=== PATIENT | female | born 1970 | race Caucasian/White ===

== ENCOUNTER 2018-07-29 03:11 | Observation (INO) ==
[2018-07-29] MEDS ORDERED: ALBUTEROL SULFATE/IPRATROPIUM 3 ML NEBU IH ONE ×2 (04:33→04:38)
[2018-07-29] MEDS ORDERED: NORMAL SALINE 1,000 ML IV ONE (04:55)
[2018-07-29 05:19] LABS: Hematocrit 32.7 % (37.0-47.0); Hemoglobin 10.9 gm/dL (12.5-16.0); Mean Cell Volume 95.9 fl (78-100); Mean Corpuscular Hgb Conc 33.3 g/dl (32-36); Mean Platelet Volume 10.4 fl (8-12.5); Neutrophil % 64.2 % (42-75.0); Platelet Count 142 K/mm3 (150-450); Red Blood Count 3.41 M/mm3 (4.2-5.4); Red Cell Distribution Width 14.7 % (11.5-14.0); White Blood Count 9.4 K/mm3 (4.0-10.5)
[2018-07-29 05:41] LABS: Albumin * 3.3 gm/dl (3.4-5.0); Anion Gap 9.1 mmol/L (6.8-13.8); BUN/Creatinine Ratio 11.6 (9.0-21.6); Bilirubin, Total 0.3 mg/dL (0.0-1.1); Ca. Corrected For Albumin 8.2 mg/dL (8.4-10.2); Potassium 3.1 mmol/L (3.4-4.6); Total Protein 6.3 gm/dL (6.2-8.2)
[2018-07-29] MEDS: LEVOFLOXACIN IN DEXTROSE 5 % 750 MG/150 ML BAG IV SCH (05:51)
[2018-07-29] MEDS: NICOTINE 21 MG PATC TD SCH (06:55)
--- NOTE | 2018-07-29 07:26 | ERNOTE ---
Dyspnea - Date Date of Service: 07/29/18 - General Presenting Symptoms: shortness of breath, difficulty of breathing Time Seen by Provider: 07/29/18 06:05 Source: patient, family Exam Limitations: no limitations - Immun/Allergies/Home Medications Immunizations: IMMUNIZATION HX Immunizations Up to Date Yes History of Influenza Vaccine Yes Hx Pneumococcal Vaccination Yes Allergies/Adverse Reactions: Allergies Penicillins Allergy (Verified 07/29/18 03:28) venom-honey bee [bee venom (honey bee)] Allergy (Verified 05/11/18 11:27) Home Medications: HOME MEDICATIONS Albuterol Sulfate [Albuterol Sulfate 2.5 MG/0.5ML] 1 vial IH Q4H 03/28/14 [Last Taken 03/28/14] Albuterol Sulfate [Proair Hfa] 2 puff IH QID PRN 03/28/14 [Last Taken 03/28/14] Budesonide/Formoterol Fumarate [Symbicort 160-4.5 Mcg Inhaler] 2 puff IH BID 03/28/14 [Last Taken 03/28/14] Insulin Regular, Human [Humulin R] 40 unit SQ BID 03/28/14 [Last Taken 03/28/14] metFORMIN HCL [Metformin HCl] 1,500 mg PO DAILY 05/11/18 [Last Taken Unknown] - History of Present Illness Narrative: Patient was treated as an outpatient for pneumonia with an antibiotic the name of which she can not remember. She takes it twice a day. She is having a hard time catching her breathe. It is difficulty for her to walk across the room without getting short of breathe. Date (Duration): 07/29/18 Time (Timing): 04:20 Severity: moderate Treatment CLINICAL TRIALS SPECIALIST: albuterol - Patient no longer has a nebulizer at home. She lost it when she moved to her daughter's house. Initiating event: Reports: upper resp illness, exposure to smoke Frequency of episodes: Reports: no prior episodes Modifying Factors - (Improves): Reports: albuterol Modifying Factors (Worsens): Reports: nothing Associated Symptoms-Dyspnea: Reports: cough, wheezing Review of Systems - Review of Systems Constitutional: Present: weakness, fatigue, decreased activity level EYE: Present: no symptoms reported ENT: Present: no symptoms reported Respiratory: Present: shortness of breath, cough, wheezing Cardiology: Present: no symptoms reported Gastrointestinal/Abdominal: Present: no symptoms reported Genitourinary: Present: no symptoms reported Musculoskeletal: Present: no symptoms reported Skin: Present: no symptoms reported Neurological: Present: no symptoms reported Endocrine: Present: no symptoms reported Hematologic/Lymphatic: Present: no symptoms reported Psych: Present: no symptoms reported All Other Systems: All systems neg except as marked Surgical History: Surgical History (Last Reviewed 05/11/18 @ 16:05 by Marek Levine MD) History of appendectomy History of cholecystectomy History of hernia repair History of thyroidectomy Social History: Preferred Language Luxembourgish Do you have any pentecostalism or No cultural preference? Smoking Status Current every day smoker Alcohol Use none Drug Use none No Social History Section defined Physical Exam - Physical Exam General Appearance: Present: wd/wn, alert, moderate distress - O2 sats in low 90's on RA audible upper airway noise. Head Exam: Present: normal inspection, no evidence of injury Eye Exam: Normal inspection: bilateral, PERRL: bilateral, EOMI: bilateral Ears, Nose, Throat: Present: normal ENT inspection, normal except -, normal pharynx Neck: Present: normal inspection, nontender, supple, full range of motion Respiratory: Present: chest nontender, decreased breath sounds, crackles - throughout, rales - minimal at bases, wheezing - occasional scattered Cardiovascular/Chest: Present: regular rate, rhythm, no murmur, normal peripheral pulses Peripheral Pulses: N=norm/S=strong/W=weak/B=bound/A=absent: Carotid (R): Normal, Carotid (L): Normal, Radial (R): Normal, Radial (L): Normal, Dorsalis-pedis (R): Normal, Dorsalis-pedis (L): Normal Gastrointestinal/Abdominal: Present: normal bowel sounds, nontender, nondistended, soft, no organomegaly Rectal Exam: Present: deferred Pelvic Exam: Present: deferred Back Exam: Present: normal inspection, normal range of motion, no CVA tenderness, no vertebral tenderness Extremity Exam: Present: normal inspection, non-tender, normal range of motion, no edema Neurological Exam: Present: alert, oriented, normal mood/affect, no motor/sensory deficits Skin Exam: Present: normal color, warm/dry Lymphatic Exam: Present: no adenopathy Progress - Date and Time Seen: Date and Time: 07/29/18 07:12 After neb patient was moving a little more air, but crackles were louder. - Results and Orders Patient's Lab Results:: I have reviewed the patient's lab results. - Vital Signs Patient's Vital Signs:: I have reviewed the patient's vital signs. Vital Signs: Vital Signs 07/29/18 03:19 07/29/18 03:25 07/29/18 03:55 Temperature 36.7 C Pulse Rate 85 82 81 Respiratory Rate 18 20 Blood Pressure 131/88 126/94 H O2 Sat by Pulse Oximetry 95 93 07/29/18 04:25 07/29/18 04:40 07/29/18 04:50 Temperature Pulse Rate 81 81 83 Respiratory Rate 20 20 20 Blood Pressure 130/86 O2 Sat by Pulse Oximetry 93 92 L 07/29/18 04:55 07/29/18 05:14 07/29/18 06:03 Temperature 36.8 C Pulse Rate 82 78 79 Respiratory Rate 18 18 14 Blood Pressure 132/78 132/78 136/79 O2 Sat by Pulse Oximetry 94 93 97 - EKG EKG: NSR EKG read: Reviewed by me - X-Ray X-Ray #1 X-Ray: chest - ? iinfiltrate base of left lung; ? lesion right lower lung Interpretation: Interp. by me - Progress/Reassessment Chief Complaint: Dyspnea Progress:: Unchanged Progress Note-Subjective: 07/29/18 07:17 Paatient will be admitted to observation to received more duo nebs and further treatment and evaluation. Plan - Plan Plan: Case was discussed with Dr. Epps who accepted her to observation. She will get a CT scan of the chest. Her ddimer is slightly elevated. Bun and CReat are normal. Old CT of abdomen (May 2018) showed a 1.9 mm pleural lesion at the base of the right lung. Departure Clinical Impression: Shortness of breath - Departure Disposition: Short Term Hospital Inpatient Condition: Fair Additional Instructions: Admitted to observation for further evaluation and treatment. CT scan of chest with contrast planned. Referrals: Wes Ramos MD [Primary Care Provider] -
[2018-07-29] MEDS ORDERED: ALBUTEROL SULFATE/IPRATROPIUM 3 ML NEBU IH SCH (07:45)
--- NOTE | 2018-07-29 10:19 | HP ---
Chief Complaint - Chief Complaint Date of Service: 07/29/18 Time of Service: 10:13 Chief Complaint: dyspnea, wheezing, weakness, cough History of Present Illness: Rosina Marquez is a 48-year-old female admitted through the emergency room with chief complaints of shortness of breath and nonproductive cough, weakness, and hypoxemia. Onset of her symptoms was Wednesday. She was not able to go to work on Wednesday, tried to go to work on Wednesday and was sent home as they thought she had the flu, was seen on and then became worse. She was going to her neighbors to do breathing treatments every 2 or 3 hours she didn't have a nebulizer of her own. She is having progressive increased weakness. She had a lesion discovered on a chest x-ray in September that has not been further investigated. This was in the right lower lobe just above the diaphragm. The chest x-ray suggests possible pneumonia in the left lower lobe as well. She is admitted to observation to improve her ventilation and get her back on medications. She'll also need a home nebulizer upon discharge. Medical History (Last Reviewed 07/29/18 @ 08:45 by Dinesh Sanchez RN) COPD (chronic obstructive pulmonary disease) Diabetes HLD (hyperlipidemia) Hypothyroidism Surgical History: Surgical History (Last Reviewed 07/29/18 @ 08:45 by Dinesh Sanchez RN) History of appendectomy History of cholecystectomy History of hernia repair History of thyroidectomy Social History: Patient Lives/Resources Home Utilized Occupation [employer] Preferred Language Gibraltarian Do you have any roman catholic or No cultural preference? Smoking Status Current every day smoker Have you smoked in the past 12 Yes months Do you dip or chew tobacco No Alcohol Use none Drug Use none No Social History Section defined Review Of Systems (GEN) - Review of Systems Generalized/Overall Review: Present: Weakness, Fatigue. Absent: Chills, Fever EENTM: Present: Nose Congestion Respiratory: Present: Cough, Shortness of Breath, Wheezing Cardiac: Present: No Symptoms Reported Abdominal: Present: Abdominal Pain Genitourinary: Present: No Symptoms Reported Musculoskeletal: Present: No Symptoms Reported Neurological: Present: No Symptoms Reported Skin: Present: No Symptoms Reported Endocrine: Present: No Symptoms Reported - History of NIDDM and hypothyroidism due to total thyroidectomy Misc: All systems neg except as marked Immunizations: IMMUNIZATION HX Immunizations Up to Date Yes History of Influenza Vaccine Yes Hx Pneumococcal Vaccination Yes Allergies/Adverse Reactions: Allergies Allergy/AdvReac Type Severity Reaction Status Date / Time Penicillins Allergy Verified 07/29/18 03:28 venom-honey bee Allergy Verified 05/11/18 11:27 [bee venom (honey bee)] Home Medications: HOME MEDICATIONS NK 07/29/18 [Last Taken Unknown] Exam - Exam Vital Signs: Vital Signs - Last Taken Temp 36.2 C 07/29/18 07:21 Pulse 80 07/29/18 07:21 Resp 20 07/29/18 07:21 BP 141/80 H 07/29/18 07:21 Pulse Ox 97 07/29/18 07:21 Constitutional: Present: Alert, Oriented x3, Cooperative, Well developed, Well nourished, Obese ENT Exam: Present: normal ENT inspection, hearing grossly normal, pharynx normal, TMs normal Eye Exam: bilateral eye: normal inspection, PERRL, EOMI Neck: Present: non-tender, full range of motion, supple, normal inspection, trachea midline, other - Thyroid is surgically absent. Absent: lymphadenopathy (R), lymphadenopathy (L) Back Exam: Present: normal inspection, no CVA tenderness, no vertebral tenderness Breasts: Present: Exam deferred Respiratory: Present: decreased breath sounds, rhonchi, wheezing, expiration (prolonged) Cardiovascular/Chest: Present: normal peripheral pulses, regular rate, rhythm, no chest tenderness, no edema, no gallop, no JVD, no murmur, no rub Peripheral Pulses: carotid (R): 2+, carotid (L): 2+, dorsalis-pedis (R): 2+, dorsalis-pedis (L): 2+, radial (R): 2+, radial (L): 2+ Abdomen: Present: Normal bowel sounds, soft, tender - difusely, other - Tymponitic to percussion /Rectal: Present: Exam deferred Extremity: Present: normal range of motion, non-tender, normal inspection, no pedal edema, no calf tenderness, normal capillary refill Skin Exam: Present: warm/dry, no cyanosis, pallor Lymphatic: Present: no adenopathy Neurologic: Present: audio visual coordinator II-XII nml as tested, other - mild ataxia, no apraxia Appearance: Present: appropriate appearance, appropriate insight, neat, no memory impairment Eye contact: Present: cooperative, good eye contact, normal speech Thoughts: Present: normal thought pattern, no apparent hallucination Diagnostic Studies: Abnormal Lab Results 07/29/18 07/29/18 07/29/18 Range/Units 05:15 05:15 05:15 RBC 3.41 L (4.2-5.4) M/mm3 Hgb 10.9 L (12.5-16.0) gm/dL Hct 32.7 L (37.0-47.0) % MCH 32.0 H (27-31) pg RDW 14.7 H (11.5-14.0) % Plt Count 142 L (150-450) K/mm3 Immature Gran % (Auto) 1.50 H (0.001-0.429) % Immature Gran # (Auto) 0.14 H (0.000-0.0310) K/mm3 D-Dimer 0.69 H (0.19-0.49) ug/mL Potassium 3.1 L (3.4-4.6) mmol/L Random Glucose 114 H (70-110) mg/dL Calcium Adj for Albumin 8.2 L (8.4-10.2) mg/dL Albumin 3.3 L (3.4-5.0) gm/dl Laboratory Results WBC 9.4 K/mm3 (4.0-10.5) 07/29/18 05:15 RBC 3.41 M/mm3 (4.2-5.4) L 07/29/18 05:15 Hgb 10.9 gm/dL (12.5-16.0) L 07/29/18 05:15 Hct 32.7 % (37.0-47.0) L 07/29/18 05:15 MCV 95.9 fl (78-100) 07/29/18 05:15 MCH 32.0 pg (27-31) H 07/29/18 05:15 MCHC 33.3 g/dl (32-36) 07/29/18 05:15 RDW 14.7 % (11.5-14.0) H 07/29/18 05:15 Plt Count 142 K/mm3 (150-450) L 07/29/18 05:15 MPV 10.4 fl (8-12.5) 07/29/18 05:15 Immature Gran % (Auto) 1.50 % (0.001-0.429) H 07/29/18 05:15 Immature Gran # (Auto) 0.14 K/mm3 (0.000-0.0310) H 07/29/18 05:15 Neutrophils % 64.2 % (42-75.0) 07/29/18 05:15 Lymphocytes % 26.3 % (20-51) 07/29/18 05:15 Monocytes % 5.3 % (0.0-9) 07/29/18 05:15 Eosinophils % 2.4 % (0.0-3.0) 07/29/18 05:15 Basophils % 0.3 % (0.0-1.0) 07/29/18 05:15 Nucleated RBC % 0.0 k/mm3 (0-1) 07/29/18 05:15 Neutrophils # 6.0 K/mm3 (1.3-6.0) 07/29/18 05:15 Lymphocytes # 2.48 k/mm3 (1.5-3.5) 07/29/18 05:15 Monocytes # 0.5 k/mm3 (0.0-1.0) 07/29/18 05:15 Eosinophils # 0.2 k/mm3 (0.0-0.7) 07/29/18 05:15 Absolute Basophils 0.0 k/mm3 (0.0-0.1) 07/29/18 05:15 D-Dimer 0.69 ug/mL (0.19-0.49) H 07/29/18 05:15 Sodium 141 mmol/L (132-142) 07/29/18 05:15 Plasma Sodium 141 mmol/L (130-142) 07/29/18 05:15 Potassium 3.1 mmol/L (3.4-4.6) L 07/29/18 05:15 Chloride 105 mmol/L (97-106) 07/29/18 05:15 Carbon Dioxide 30.0 mmol/L (24-32.6) 07/29/18 05:15 Anion Gap 9.1 mmol/L (6.8-13.8) 07/29/18 05:15 BUN 8 mg/dL (3-23) 07/29/18 05:15 Creatinine 0.69 mg/dL (0.4-1.4) 07/29/18 05:15 Est GFR (Non-Af Amer) 97 mL/min (60-130) 07/29/18 05:15 BUN/Creatinine Ratio 11.6 (9.0-21.6) 07/29/18 05:15 Random Glucose 114 mg/dL (70-110) H 07/29/18 05:15 Calcium 8.0 mg/dL (7.9-10.9) 07/29/18 05:15 Calcium Adj for Albumin 8.2 mg/dL (8.4-10.2) L 07/29/18 05:15 Total Bilirubin 0.3 mg/dL (0.0-1.1) 07/29/18 05:15 AST 46 U/L (0-48) 07/29/18 05:15 ALT 32 U/L (19-67) 07/29/18 05:15 Alkaline Phosphatase 91 U/L (50-170) 07/29/18 05:15 Troponin I Less than 0.017 ng/mL (0.00-0.10) 07/29/18 05:15 Total Protein 6.3 gm/dL (6.2-8.2) 07/29/18 05:15 Albumin 3.3 gm/dl (3.4-5.0) L 07/29/18 05:15 Influenza Type A Ag Negative (NEGATIVE) 07/29/18 05:15 Influenza Type B Ag Negative (NEGATIVE) 07/29/18 05:15 Assessment/Plan - Assessment/Plan (1) Pneumonia Problem: Acute (2) Asthma Problem: Acute (3) Hypothyroidism Problem: Chronic Qualifiers: Hypothyroidism type: postoperative Qualified Code(s): E89.0 - Postprocedural hypothyroidism (4) Type II diabetes mellitus Problem: Chronic Qualifiers: Diabetes mellitus vascular manager insulin use: without shelter use Diabetes mellitus complication status: without complication Qualified Code(s): E11.9 - Type 2 diabetes mellitus without complications (5) Current every day smoker Problem: Acute (6) Hypoxemia Problem: Acute
[2018-07-29] MEDS: ALBUTEROL SULFATE/IPRATROPIUM 3 ML NEBU IH SCH ×4 (10:27→22:07)
[2018-07-29] MEDS: predniSONE 20 MG TABLET PO SCH ×2 (11:28→21:33)
[2018-07-29] MEDS ORDERED: metFORMIN HCL 500 MG TABLET PO SCH (17:00)
[2018-07-29] MEDS ORDERED: MONTELUKAST SODIUM 10 MG TABLET PO SCH (21:00)
[2018-07-29] MEDS: ACETAMINOPHEN 500 MG TABLET PO PRN (22:11)
[2018-07-30] MEDS: ALBUTEROL SULFATE/IPRATROPIUM 3 ML NEBU IH SCH ×3 (02:05→11:00)
[2018-07-30] MEDS: LEVOFLOXACIN IN DEXTROSE 5 % 750 MG/150 ML BAG IV SCH (04:13)
[2018-07-30] MEDS: ACETAMINOPHEN 500 MG TABLET PO PRN (04:25)
[2018-07-30 06:32] LABS: Hematocrit 33.1 % (37.0-47.0); Hemoglobin 11.2 gm/dL (12.5-16.0); Mean Cell Volume 95.1 fl (78-100); Mean Corpuscular Hemoglobin 32.2 pg (27-31); Mean Corpuscular Hgb Conc 33.8 g/dl (32-36); Neutrophil # 7.2 K/mm3 (1.3-6.0); Neutrophil % 70.7 % (42-75.0); Platelet Count 147 K/mm3 (150-450); Red Blood Count 3.48 M/mm3 (4.2-5.4); Red Cell Distribution Width 14.6 % (11.5-14.0); White Blood Count 10.1 K/mm3 (4.0-10.5)
[2018-07-30] MEDS: NICOTINE 21 MG PATC TD SCH (06:56)
[2018-07-30 06:58] LABS: BUN/Creatinine Ratio 12.8 (9.0-21.6); Calcium * 8.7 mg/dL (7.9-10.9); Carbon Dioxide 25.8 mmol/L (24-32.6); Estimated Creat Clear 55.7; Potassium 3.8 mmol/L (3.4-4.6)
[2018-07-30] MEDS ORDERED: LEVOTHYROXINE SODIUM 100 MCG TABLET PO SCH (07:00)
[2018-07-30] MEDS ORDERED: LEVOTHYROXINE SODIUM 175 MCG TABLET PO SCH (07:00)
--- NOTE | 2018-07-30 09:28 | DS ---
(1) Pneumonia Problem: Acute (2) Asthma Problem: Acute (3) Hypothyroidism Problem: Chronic Qualifiers: Hypothyroidism type: postoperative Qualified Code(s): E89.0 - Postprocedural hypothyroidism (4) Type II diabetes mellitus Problem: Chronic Qualifiers: Diabetes mellitus fci insulin use: without carton maker use Diabetes mellitus complication status: without complication Qualified Code(s): E11.9 - Type 2 diabetes mellitus without complications (5) Current every day smoker Problem: Acute (6) Hypoxemia Problem: Acute Description of Stay: Rosina Marquez is a 48-year-old female who developed cough and shortness of breath last Wednesday. She didn't go to work on Wednesday and then try to go in on Wednesday but was sent home because of her illness and then couldn't go to work on . She presented to the emergency room yesterday with cough, x-ray findings of a left upper lobe pneumonia, weakness, mild hypoxemia. She was started on IV fluids, given respiratory therapy treatments, started on montelukast, started on prednisone, started on metformin. Today she is considerably improved. The hypoxemia is resolved. She still wheezing but not nearly as loudly and only with expiration. Disposition is improved. Procedures Performed: none Results and Findings: Pending Mircobiology Results 07/29/18 05:48 Blood Blood Culture - Preliminary NO GROWTH 24 HOURS 07/29/18 05:15 Blood Blood Culture - Preliminary NO GROWTH 24 HOURS Lab Pending Results 07/29/18 05:15: WBC 9.4, RBC 3.41 L, Hgb 10.9 L, Hct 32.7 L, MCV 95.9, MCH 32.0 H, MCHC 33.3, RDW 14.7 H, Plt Count 142 L, MPV 10.4, Immature Gran % (Auto) 1.50 H, Immature Gran # (Auto) 0.14 H, Neutrophils % 64.2, Lymphocytes % 26.3, Monocytes % 5.3, Eosinophils % 2.4, Basophils % 0.3, Nucleated RBC % 0.0, Neutrophils # 6.0, Lymphocytes # 2.48, Monocytes # 0.5, Eosinophils # 0.2, Absolute Basophils 0.0 07/29/18 05:15: Influenza Type A Ag Negative, Influenza Type B Ag Negative 07/29/18 05:15: Sodium 141, Plasma Sodium 141, Potassium 3.1 L, Chloride 105, Carbon Dioxide 30.0, Anion Gap 9.1, BUN 8, Creatinine 0.69, Est GFR (Non-Af Amer) 97, BUN/Creatinine Ratio 11.6, Random Glucose 114 H, Calcium 8.0, Calcium Adj for Albumin 8.2 L, Total Bilirubin 0.3, AST 46, ALT 32, Alkaline Phosphatase 91, Total Protein 6.3, Albumin 3.3 L 07/29/18 05:15: Troponin I Less than 0.017 07/29/18 05:15: D-Dimer 0.69 H 07/30/18 06:00: WBC 10.1, RBC 3.48 L, Hgb 11.2 L, Hct 33.1 L, MCV 95.1, MCH 32.2 H, MCHC 33.8, RDW 14.6 H, Plt Count 147 L, MPV 10.0, Immature Gran % (Auto) 1.10 H, Immature Gran # (Auto) 0.11 H, Neutrophils % 70.7, Lymphocytes % 24.0, Monocytes % 3.9, Eosinophils % 0.2, Basophils % 0.1, Nucleated RBC % 0.0, Neutrophils # 7.2 H, Lymphocytes # 2.43, Monocytes # 0.4, Eosinophils # 0.0, Absolute Basophils 0.0 07/30/18 06:20: Sodium 138, Plasma Sodium 140, Potassium 3.8 D, Chloride 100, Carbon Dioxide 25.8, Anion Gap 16.0 H, BUN 11, Creatinine 0.86, Est GFR (Non-Af Amer) 76 D, BUN/Creatinine Ratio 12.8, Random Glucose 248 H D, Calcium 8.7 Discharge Location: Home Disposition: Home self-care Condition: Fair Discharge Activity: Activity as tolerated Discharge Diet: Consistent carbs Referrals: Wes Ramos MD [Primary Care Provider] - Additional Patient Instructions (free text): Follow up with PCP in 2 weeks. Prescriptions (Any new or edited meds): Albuterol Sulfate/Ipratropium [Duoneb 2.5-0.5MG/3ML Soln] 3 ml IH QID #50 nebu metFORMIN HCL [Glucophage] 500 mg PO BIDWM #60 tablet Montelukast Sodium [Singulair] 10 mg PO HS #30 tablet Nicotine [Nicoderm] 21 mg TD Q24H #30 patch.td24 Complete Home Medications List: Complete Home Medication List: Acetaminophen [Tylenol] 500 mg PO Q4H PRN tablet 07/30/18 Albuterol Sulfate/Ipratropium [Duoneb 2.5-0.5MG/3ML Soln] 3 ml IH QID #50 nebu 07/30/18 Levothyroxine Sodium [Synthroid] 100 mcg PO DAILY@0700 tablet 07/30/18 Levothyroxine Sodium [Synthroid] 175 mcg PO DAILY@0700 tablet 07/30/18 Montelukast Sodium [Singulair] 10 mg PO HS #30 tablet 07/30/18 Nicotine [Nicoderm] 21 mg TD Q24H #30 patch.td24 07/30/18 metFORMIN HCL [Glucophage] 500 mg PO BIDWM #60 tablet 07/30/18
[2018-07-30 13:44] VITALS: BP 144/78
[2018-07-31] MEDS ORDERED: LEVOFLOXACIN IN DEXTROSE 5 % 750 MG/150 ML BAG IV SCH (04:30)
== END 2018-07-30 13:50 | disposition home or self-care (01) ==
LOC: ER 03:11 → MS 03:11
PROVIDERS: ADMIT Family Medicine; ATTEND Family Medicine
CPT/HCPCS: 36415; 71010; 71045; 71260; 80048; 80053; 84484; 85025; 85379; 87040; 87400; 87449; 93005; 94640; 94664; 96365; 96366; 99285; G0378